=== PATIENT | male | born 1935 | race Caucasian/White ===

== ENCOUNTER 2020-10-03 11:21 | Emergency (ER) | payer MEDICARE | END 2020-10-03 13:20 | disposition home or self-care (01) | LOC: CSHERS 11:21 | DX: M25.562 Pain in left knee (principal); E11.9 Type 2 diabetes mellitus without complications; I10 Essential (primary) hypertension; Z79.82 Long term (current) use of aspirin; Z79.84 Long term (current) use of oral hypoglycemic drugs; Z79.899 Other long term (current) drug therapy; M79.605 Pain in left leg; M79.89 Other specified soft tissue disorders ==

== ENCOUNTER 2021-11-01 11:04 | Emergency (ER) | payer MEDICARE | END 2021-11-01 14:57 | disposition home or self-care (01) | LOC: CSHERS 11:04 | DX: M25.561 Pain in right knee (principal); B35.3 Tinea pedis; E11.9 Type 2 diabetes mellitus without complications; I10 Essential (primary) hypertension ==

== ENCOUNTER 2022-05-25 16:35 | Outpatient (CLI) | payer MEDICARE | END 2022-05-25 16:36 | disposition home or self-care (01) | LOC: CSHRAD 16:35 | PROVIDERS: ATTEND Family Medicine | DX: M79.89 Other specified soft tissue disorders (principal) ==

== ENCOUNTER 2022-08-24 13:55 | Outpatient (CLI) | payer MEDICARE | END 2022-08-24 13:56 | disposition home or self-care (01) | LOC: CSHWCC 13:55 | PROVIDERS: ATTEND Nurse Practitioner Family | DX: I87.311 Chronic venous hypertension (idiopathic) with ulcer of right lower extremity (principal); L97.311 Non-pressure chronic ulcer of right ankle limited to breakdown of skin; R60.0 Localized edema | CPT/HCPCS: 99205; G0463 ==

== ENCOUNTER 2022-09-05 10:50 | Outpatient (CLI) | payer MEDICARE | END 2022-09-05 10:51 | disposition home or self-care (01) | LOC: CSHWCC 10:50 | PROVIDERS: ATTEND Nurse Practitioner Family | DX: I87.311 Chronic venous hypertension (idiopathic) with ulcer of right lower extremity (principal); L97.311 Non-pressure chronic ulcer of right ankle limited to breakdown of skin | CPT/HCPCS: 97139; G0463; 99213 ==

== ENCOUNTER 2023-02-24 08:07 | Outpatient (CLI) | payer MEDICARE | END 2023-02-24 08:08 | disposition home or self-care (01) | LOC: CSHWCC 08:07 | PROVIDERS: ATTEND Nurse Practitioner Family | DX: R60.0 Localized edema (principal); I87.311 Chronic venous hypertension (idiopathic) with ulcer of right lower extremity; L97.311 Non-pressure chronic ulcer of right ankle limited to breakdown of skin | CPT/HCPCS: 97139; 97597; G0463; 99213 ==

== ENCOUNTER 2023-03-09 15:39 | Outpatient (CLI) | payer MEDICARE | END 2023-03-09 15:40 | disposition home or self-care (01) | LOC: CSHWCC 15:39 | PROVIDERS: ATTEND Nurse Practitioner Family | DX: R60.0 Localized edema (principal); I87.311 Chronic venous hypertension (idiopathic) with ulcer of right lower extremity; L97.311 Non-pressure chronic ulcer of right ankle limited to breakdown of skin | CPT/HCPCS: 29581 ==

== ENCOUNTER 2023-05-22 13:13 | Outpatient (CLI) | payer MEDICARE | END 2023-05-22 13:14 | disposition home or self-care (01) | LOC: CSHWCC 13:13 | PROVIDERS: ATTEND Physician Assistant | DX: I87.313 Chronic venous hypertension (idiopathic) with ulcer of bilateral lower extremity (principal); L97.919 Non-pressure chronic ulcer of unspecified part of right lower leg with unspecified severity; L97.929 Non-pressure chronic ulcer of unspecified part of left lower leg with unspecified severity; E11.622 Type 2 diabetes mellitus with other skin ulcer; L98.499 Non-pressure chronic ulcer of skin of other sites with unspecified severity | CPT/HCPCS: 97597 ==

== ENCOUNTER 2023-06-01 13:31 | Outpatient (CLI) | payer MEDICARE | END 2023-06-01 13:32 | disposition home or self-care (01) | LOC: CSHULT 13:31 | PROVIDERS: ATTEND Family Medicine | DX: I73.9 Peripheral vascular disease, unspecified (principal) | CPT/HCPCS: 93923 ==

== ENCOUNTER 2023-06-19 08:46 | Outpatient (CLI) | payer MEDICARE | END 2023-06-19 08:47 | disposition home or self-care (01) | LOC: CSHWCC 08:46 | PROVIDERS: ATTEND Physician Assistant | DX: E11.622 Type 2 diabetes mellitus with other skin ulcer (principal); I87.313 Chronic venous hypertension (idiopathic) with ulcer of bilateral lower extremity; L97.919 Non-pressure chronic ulcer of unspecified part of right lower leg with unspecified severity; L97.929 Non-pressure chronic ulcer of unspecified part of left lower leg with unspecified severity | CPT/HCPCS: 97597 ==

== ENCOUNTER 2023-07-17 13:05 | Outpatient (CLI) | payer MEDICARE | END 2023-07-17 13:06 | disposition home or self-care (01) | LOC: CSHWCC 13:05 | PROVIDERS: ATTEND Preventive Medicine Undersea and Hyperbaric Medicine | DX: E11.622 Type 2 diabetes mellitus with other skin ulcer (principal); I87.313 Chronic venous hypertension (idiopathic) with ulcer of bilateral lower extremity; L97.919 Non-pressure chronic ulcer of unspecified part of right lower leg with unspecified severity; L97.929 Non-pressure chronic ulcer of unspecified part of left lower leg with unspecified severity | CPT/HCPCS: 29445; 29581; 97605; 99212; G0463 ==

== ENCOUNTER 2023-07-24 13:01 | Outpatient (CLI) | payer MEDICARE | END 2023-07-24 13:02 | disposition home or self-care (01) | LOC: CSHWCC 13:01 | PROVIDERS: ATTEND Physician Assistant | DX: E11.622 Type 2 diabetes mellitus with other skin ulcer (principal); L97.919 Non-pressure chronic ulcer of unspecified part of right lower leg with unspecified severity; I87.313 Chronic venous hypertension (idiopathic) with ulcer of bilateral lower extremity | CPT/HCPCS: 99212; G0463 ==

== ENCOUNTER 2023-07-31 09:25 | Outpatient (CLI) | payer MEDICARE | END 2023-07-31 09:26 | disposition home or self-care (01) | LOC: CSHWCC 09:25 | PROVIDERS: ATTEND Physician Assistant | DX: I87.313 Chronic venous hypertension (idiopathic) with ulcer of bilateral lower extremity (principal); E11.622 Type 2 diabetes mellitus with other skin ulcer; L97.919 Non-pressure chronic ulcer of unspecified part of right lower leg with unspecified severity; L97.929 Non-pressure chronic ulcer of unspecified part of left lower leg with unspecified severity | CPT/HCPCS: 99213; G0463 ==

== ENCOUNTER 2023-08-03 09:37 | Outpatient (CLI) | payer MEDICARE | END 2023-08-03 09:38 | disposition home or self-care (01) | LOC: CSHULT 09:37 | PROVIDERS: ATTEND Physician Assistant | DX: I87.313 Chronic venous hypertension (idiopathic) with ulcer of bilateral lower extremity (principal) | CPT/HCPCS: 93970 ==

== ENCOUNTER 2023-08-06 01:50 | Emergency (ER) | payer MEDICARE | END 2023-08-06 04:16 | disposition home or self-care (01) | LOC: CSHERS 01:50 | DX: M25.511 Pain in right shoulder (principal); I10 Essential (primary) hypertension; E11.9 Type 2 diabetes mellitus without complications; Z79.4 Long term (current) use of insulin; Z79.899 Other long term (current) drug therapy; Z79.82 Long term (current) use of aspirin; W19.XXXA Unspecified fall, initial encounter | CPT/HCPCS: 70450; 72125 ==

== ENCOUNTER 2023-08-07 13:12 | Outpatient (CLI) | payer MEDICARE | END 2023-08-07 13:13 | disposition home or self-care (01) | LOC: CSHWCC 13:12 | PROVIDERS: ATTEND Nurse Practitioner Family | DX: E11.622 Type 2 diabetes mellitus with other skin ulcer (principal); I87.313 Chronic venous hypertension (idiopathic) with ulcer of bilateral lower extremity; L97.929 Non-pressure chronic ulcer of unspecified part of left lower leg with unspecified severity; L97.919 Non-pressure chronic ulcer of unspecified part of right lower leg with unspecified severity | CPT/HCPCS: 11042; 87070; 87077; 87186; 87205 ==

== ENCOUNTER 2023-08-14 14:06 | Outpatient (CLI) | payer MEDICARE | END 2023-08-14 14:07 | disposition home or self-care (01) | LOC: CSHWCC 14:06 | PROVIDERS: ATTEND Nurse Practitioner Family | DX: I87.313 Chronic venous hypertension (idiopathic) with ulcer of bilateral lower extremity (principal); E11.622 Type 2 diabetes mellitus with other skin ulcer; L97.929 Non-pressure chronic ulcer of unspecified part of left lower leg with unspecified severity; L97.919 Non-pressure chronic ulcer of unspecified part of right lower leg with unspecified severity | CPT/HCPCS: 11042 ==

== ENCOUNTER 2023-08-21 15:09 | Outpatient (CLI) | payer MEDICARE | END 2023-08-21 15:10 | disposition home or self-care (01) | LOC: CSHWCC 15:09 | PROVIDERS: ATTEND Nurse Practitioner Family | DX: E11.622 Type 2 diabetes mellitus with other skin ulcer (principal); I87.313 Chronic venous hypertension (idiopathic) with ulcer of bilateral lower extremity; L97.312 Non-pressure chronic ulcer of right ankle with fat layer exposed | CPT/HCPCS: 11042 ==

== ENCOUNTER 2023-08-28 12:45 | Outpatient (CLI) | payer MEDICARE | END 2023-08-28 12:46 | disposition home or self-care (01) | LOC: CSHWCC 12:45 | PROVIDERS: ATTEND Nurse Practitioner Family | DX: I87.313 Chronic venous hypertension (idiopathic) with ulcer of bilateral lower extremity (principal); E11.622 Type 2 diabetes mellitus with other skin ulcer; L97.312 Non-pressure chronic ulcer of right ankle with fat layer exposed | CPT/HCPCS: 11042 ==

== ENCOUNTER 2023-09-11 | Outpatient (CLI) | payer MEDICARE | END 2023-09-11 14:26 | disposition home or self-care (01) | DX: E11.622 Type 2 diabetes mellitus with other skin ulcer (principal); L97.312 Non-pressure chronic ulcer of right ankle with fat layer exposed; I87.313 Chronic venous hypertension (idiopathic) with ulcer of bilateral lower extremity; L97.929 Non-pressure chronic ulcer of unspecified part of left lower leg with unspecified severity ==

== ENCOUNTER 2023-09-25 16:53 | Outpatient (CLI) | payer MEDICARE | END 2023-09-25 16:54 | disposition home or self-care (01) | LOC: CSHWCC 16:53 | PROVIDERS: ATTEND Nurse Practitioner Family | DX: I87.313 Chronic venous hypertension (idiopathic) with ulcer of bilateral lower extremity (principal); E11.622 Type 2 diabetes mellitus with other skin ulcer; L97.312 Non-pressure chronic ulcer of right ankle with fat layer exposed | CPT/HCPCS: 97597 ==

== ENCOUNTER 2023-11-06 11:15 | Outpatient (CLI) | payer MEDICARE | END 2023-11-06 11:16 | disposition home or self-care (01) | LOC: CSHWCC 11:15 | PROVIDERS: ATTEND Family Medicine | DX: I87.313 Chronic venous hypertension (idiopathic) with ulcer of bilateral lower extremity (principal); E11.622 Type 2 diabetes mellitus with other skin ulcer; L97.312 Non-pressure chronic ulcer of right ankle with fat layer exposed | CPT/HCPCS: 97597 ==

== ENCOUNTER 2023-11-13 15:10 | Outpatient (CLI) | payer MEDICARE | END 2023-11-13 15:11 | disposition home or self-care (01) | LOC: CSHWCC 15:10 | PROVIDERS: ATTEND Nurse Practitioner Family | DX: E11.622 Type 2 diabetes mellitus with other skin ulcer (principal); L97.312 Non-pressure chronic ulcer of right ankle with fat layer exposed; I87.313 Chronic venous hypertension (idiopathic) with ulcer of bilateral lower extremity; L97.929 Non-pressure chronic ulcer of unspecified part of left lower leg with unspecified severity | CPT/HCPCS: 11042; 87070; 87205; 99212; G0463 ==

== ENCOUNTER 2023-11-20 13:10 | Outpatient (CLI) | payer MEDICARE | END 2023-11-20 13:11 | disposition home or self-care (01) | LOC: CSHWCC 13:10 | PROVIDERS: ATTEND Nurse Practitioner Family | DX: E11.622 Type 2 diabetes mellitus with other skin ulcer (principal); I87.313 Chronic venous hypertension (idiopathic) with ulcer of bilateral lower extremity; L97.312 Non-pressure chronic ulcer of right ankle with fat layer exposed; L97.929 Non-pressure chronic ulcer of unspecified part of left lower leg with unspecified severity | CPT/HCPCS: 11042 ==

== ENCOUNTER 2023-12-18 14:39 | Outpatient (CLI) | payer MEDICARE, OTHER | END 2023-12-18 14:40 | disposition home or self-care (01) | LOC: CSHWCC 14:39 | PROVIDERS: ATTEND Nurse Practitioner Family | DX: I87.313 Chronic venous hypertension (idiopathic) with ulcer of bilateral lower extremity (principal); E11.622 Type 2 diabetes mellitus with other skin ulcer; L97.312 Non-pressure chronic ulcer of right ankle with fat layer exposed; L97.929 Non-pressure chronic ulcer of unspecified part of left lower leg with unspecified severity | CPT/HCPCS: 11042 ==